=== PATIENT | male | born 1970 | race Caucasian/White ===

== ENCOUNTER 2017-05-04 11:14 | Emergency (ER) | payer OTHER, BC ==
[2017-05-04 11:18] VITALS: BP 140/92; PULSE 100; TEMP 97.8; BMI 31.0
--- NOTE | 2017-05-04 12:22 | PDOC ---
History of Present Illness - General Chief Complaint: Injury Stated Complaint: KNEE INJURY Time Seen by Provider: 05/04/17 12:06 Past History - Past Medical History Allergies/Adverse Reactions: Allergies Allergy/AdvReac Type Severity Reaction Status Date / Time No Known Allergies Allergy Verified 05/04/17 11:15 Home Medications: Ambulatory Orders NK [No Known Home Medication] 05/04/17 COPD: No - Suicide/Smoking/Psychosocial Hx Smoking History: Current every day smoker Have you smoked in the past 12 months: Yes Number of Cigarettes Smoked Daily: 5 Information on smoking cessation initiated: Yes 'Breaking Loose' booklet given: 05/04/17 Hx Alcohol Use: No Drug/Substance Use Hx: No Substance Use Type: None *Physical Exam - Vital Signs Last Vital Signs Temp Pulse Resp BP Pulse Ox 97.8 F 100 H 18 140/92 100 05/04/17 11:15 05/04/17 11:15 05/04/17 11:15 05/04/17 11:15 05/04/17 11:15 *DC/Admit/Observation/Transfer Diagnosis at time of Disposition: Right knee sprain Qualifiers: Encounter type: initial encounter Involved ligament of knee: unspecified ligament Qualified Code(s): S83.91XA - Sprain of unspecified site of right knee , initial encounter - Discharge Dispostion Disposition: HOME Condition at time of disposition: Stable Admit: No - Referrals Referrals: Yaw Chapin MD [Primary Care Provider] - Ryan Hwang MD [Staff Physician] - - Patient Instructions Printed Discharge Instructions: DI for Knee Sprain Additional Instructions: You injured her knee at work. Your x-ray shows no fractures. Please follow-up with Dr. Hwang for further evaluation. Please take your medications as prescribed for pain. When resting keep the leg elevated and apply heat to the area. Wear an Alan wrap to help with the swelling. Return to the emergency department if you have worsening pain, numbness and tingling in her foot, are unable to walk, or have any changes in her symptoms. - Post Discharge Activity Forms/Work/School Notes: Back to Work
== END 2017-05-04 13:05 | disposition home or self-care (01) ==
LOC: JERFT 11:14
DX: S83.8X1A Sprain of other specified parts of right knee, initial encounter (principal); W01.0XXA Fall on same level from slipping, tripping and stumbling without subsequent striking against object, initial encounter; Y93.89 Activity, other specified; Y92.89 Other specified places as the place of occurrence of the external cause; Y99.0 Civilian activity done for income or pay; F17.210 Nicotine dependence, cigarettes, uncomplicated
CPT/HCPCS: 73562-TC-RT-FY; 99281-25

== ENCOUNTER 2017-06-30 05:23 | Day surgery (SDC) | payer OTHER, BC ==
[2017-06-17 10:18] VITALS: BMI 31.0
--- NOTE | 2017-06-30 08:49 | HP ---
[facility] - Chief Complaint Chief Complaint: right knee pain - Past Medical History Allergies/Adverse Reactions: Allergies Allergy/AdvReac Type Severity Reaction Status Date / Time No Known Allergies Allergy Verified 05/04/17 11:15 - Current Medications Current Medications: Home Medications Medication Instructions Recorded Alprazolam [Xanax] 1 mg PO TID 06/17/17 Gabapentin 100 mg PO TID 06/17/17 Multivitamin [One Daily] 1 each PO DAILY 06/17/17 Oxycodone HCl 10 mg PO TID PRN 06/17/17 Ubidecarenone [Coq-10] 100 mg PO DAILY 06/17/17 Vitamin B Complex 1 each PO DAILY 06/17/17 [facility] Physical Exam - Physical Examination General Appearance: Well Nourished, Well Developed, Alert & Oriented x3 ENT: Clear Lung: Normal air movement Heart: Regular rate & rhythm Extremities: Other (right knee- + swelling, + ttp, decr rom, + mcmurrays, nvi MRI + mt) Neurological: Intact, Alert, Oriented Satellite Impression/Plan - Impression/Plan Impression: right knee internal derangement Operative Procedure: right knee arthroscopy Date to be Performed: 06/30/17
[2017-06-30] MEDS ORDERED: oxyCODONE HCL 5 MG TABLET PO PRN (10:29)
[2017-06-30] MEDS ORDERED: ONDANSETRON 4 MG/2 ML VIAL IVPUSH PRN (10:29)
[2017-06-30] MEDS ORDERED: PROMETHAZINE HCL 25 MG/1 ML VIAL IVPUSH PRN (10:29)
[2017-06-30] MEDS ORDERED: LACTATED RINGERS SOLUTION 1,000 ML IV SCH (10:30)
[2017-06-30] MEDS ORDERED: LIDOCAINE 1%/EPI 1:100000 (20 ML MULTI DOSE VIAL) ONE (10:31)
[2017-06-30] MEDS ORDERED: BUPIVACAINE HCL/PF 0.5% (5MG/ML) 10 ML VIAL ONE (10:31)
[2017-06-30] MEDS ORDERED: PROPOFOL 20 ML ONE (10:47)
[2017-06-30] MEDS ORDERED: MIDAZOLAM HCL 2 MG/2 ML SINGLE DOSE VIAL ONE (10:47)
[2017-06-30] MEDS ORDERED: GLYCOPYRROLATE 0.2 MG/1 ML VIAL ONE (10:48)
[2017-06-30] MEDS ORDERED: DEXAMETHASONE SOD PHOSPHATE 4 MG/1 ML VIAL ONE (11:02)
[2017-06-30] MEDS ORDERED: KETOROLAC TROMETHAMINE 30 MG/1 ML VIAL ONE (11:02)
--- NOTE | 2017-06-30 11:17 | OP ---
Operative Note - Note: Operative Date: 06/30/17 ([facility]) Pre-Operative Diagnosis: right knee internal derangement Operation: right knee arthroscopy with debridement chondroplasty Post-Operative Diagnosis: Same as Pre-op Surgeon: Alexx Madrigal Anesthesiologist/INTERNET MARKETING INTERN: Abel Ramon Anesthesia: General, Local Specimens Removed: shavings Estimated Blood Loss (mls): 5 Operative Report Dictated: Yes
[2017-06-30 12:26] VITALS: TEMP 98
[2017-06-30 13:40] VITALS: BP 118/74; PULSE 77
--- NOTE | 2017-06-30 13:59 | OP ---
DATE OF OPERATION: 06/30/2017 PREOPERATIVE DIAGNOSIS: Internal derangement, right knee. POSTOPERATIVE DIAGNOSIS: Internal derangement, right knee. PROCEDURE: Arthroscopy, right knee, with chondroplasty, medial femoral condyle. SURGICAL ATTENDING: Alexx Madrigal MD ANESTHESIA: General with LMA. CLOSURE: Nylon 4-0. COMPLICATIONS: None. CONDITION: To recovery room in stable condition. DESCRIPTION OF OPERATIVE PROCEDURE: Patient taken to the operating room on June 30, 2017. General anesthesia with LMA was administered by the anesthesiologist. Right lower extremity was prepped and draped in the usual sterile fashion. Medial and lateral infrapatellar portal sites were infiltrated with 1% Xylocaine with epinephrine. Superolateral portal was made with a 15 blade with blunt trocar. The scope was placed in the lateral infrapatellar and up into the suprapatellar pouch. The knee was inflated with a cocktail of 10 mL of 1% Xylocaine, 10 mL of 0.5% Marcaine, 20 mL of arthroscopic normal saline. The medial and lateral infrapatellar portals were then made with a 15 blade followed by a blunt trocar. The scope was placed up into the suprapatellar pouch. Pouch was visualized to be clean. The medial and lateral gutters were visualized to be clean. The undersurface of the patella and trochlea were visualized to be intact. With valgus stress on the knee the medial compartment was entered. The medial meniscus was visualized, probed, found to be intact. The medial femoral condyle had some grade 2-3 changes. This was debrided using the shaver down to stable articular cartilage. The medial tibial plateau was found to be intact. At 90 degrees the ACL was visualized, probed, found to be intact. In the figure 4 position the lateral compartment was entered The lateral meniscus was visualized, probed, found to be intact. The lateral femoral condyle was run and found to be intact as was the lateral tibial plateau. The knee was irrigated with copious amounts of irrigation. Portals closed with 4-0 nylon. Prior to closure 20 mL of 0.5% Marcaine was then infused through the cannula for postoperative analgesia. A sterile pressure dressing was placed over the knee. Patient awakened from anesthesia and transferred to recovery in stable condition. No complication. ESTIMATED BLOOD LOSS: Negligible. Nolberto [id number]
--- NOTE | 2017-07-02 15:43 | PATH ---
Surgical Pathology Report Patient Name: ALLYSON COBOS [facility]. Rec. #: [id number] /Age/Gender: 1970 (Age: 46) / M Account: [id number] Location: [facility] SURGICAL Taken: 06/30/2017 Received: 06/30/2017 Reported: 07/02/2017 Physicians: Alexx Madrigal M.D. Specimen(s) Received RIGHT KNEE SHAVINGS Clinical History Right knee tear Final Diagnosis KNEE SHAVINGS, RIGHT, ARTHROSCOPY: FRAGMENTS OF DENSE FIBROCONNECTIVE TISSUE, ADIPOSE TISSUE, AND SYNOVIUM. Electronically Signed Jade Winston M.D. Gross Description Received in formalin, labeled "right knee shavings," is a 3.0 x 3.0 x 0.3 cm. aggregate of milian-yellow soft tissue fragments. A fundraising sale representative portion is submitted in one cassette. /06/30/2017 saudi06/30/2017
== END 2017-06-30 13:40 | disposition home or self-care (01) ==
LOC: JASU-SURG 05:23
PROVIDERS: ATTEND Orthopaedic Surgery
PROC: 0SBC4ZZ Excision of Right Knee Joint, Percutaneous Endoscopic Approach (ICD-10-PCS; principal; 2017-06-30 10:15)
DX: M23.91 Unspecified internal derangement of right knee (principal)
CPT/HCPCS: 88304-TC; 94760

== ENCOUNTER 2018-09-05 10:52 | Emergency (ER) | payer OTHER, BC ==
[2018-09-05 11:11] VITALS: BP 130/85; PULSE 78; TEMP 98; BMI 31.7
[2018-09-05] MEDS ORDERED: ACETAMINOPHEN 500 MG TABLET (FP) PO ONE (11:35)
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
== END 2018-09-05 13:40 | disposition home or self-care (01) ==
LOC: JER 10:52
PROC: 0HQDXZZ Repair Right Lower Arm Skin, External Approach (ICD-10-PCS; principal; 2018-09-05)
DX: S51.811A Laceration without foreign body of right forearm, initial encounter (principal); M25.561 Pain in right knee; V03.10XA Pedestrian on foot injured in collision with car, pick-up truck or van in traffic accident, initial encounter; Y92.414 Local residential or business street as the place of occurrence of the external cause; Y93.89 Activity, other specified; Y99.0 Civilian activity done for income or pay
CPT/HCPCS: 73090-TC-RT-FY; 73562-TC-RT-FY; 99281-25

== ENCOUNTER 2020-06-27 12:08 | Emergency (ER) | payer OTHER, BC ==
[2020-06-27 12:33] VITALS: BP 132/73; PULSE 77; BMI 31.7
[2020-06-27] MEDS ORDERED: KETOROLAC TROMETHAMINE 60 MG/2 ML VIAL IM ONE (12:58)
[2020-06-27] MEDS ORDERED: KETOROLAC TROMETHAMINE 30 MG/1 ML VIAL ONE (13:13)
== END 2020-06-27 13:53 | disposition home or self-care (01) ==
LOC: JER 12:08
PROC: 3E0233Z Introduction of Anti-inflammatory into Muscle, Percutaneous Approach (ICD-10-PCS; principal; 2020-06-27)
DX: M25.562 Pain in left knee (principal)
CPT/HCPCS: 73562-TC-LT-FY; 99284-25

== ENCOUNTER 2023-02-03 08:13 | Emergency (ER) | payer OTHER, BC ==
[2023-02-03 08:29] VITALS: BP 162/81; PULSE 68; RESP 18; TEMP 97.9; BMI 37.6
[2023-02-03] MEDS ORDERED: KETOROLAC TROMETHAMINE 30 MG/1 ML VIAL IM ONE (09:53)
[2023-02-03] MEDS ORDERED: KETOROLAC TROMETHAMINE 30 MG/1 ML VIAL ONE (10:00)
== END 2023-02-03 10:45 | disposition home or self-care (01) ==
LOC: JER 08:13 → JERFT 08:13
PROC: 3E0233Z Introduction of Anti-inflammatory into Muscle, Percutaneous Approach (ICD-10-PCS; principal; 2023-02-03)
DX: S86.911A Strain of unspecified muscle(s) and tendon(s) at lower leg level, right leg, initial encounter (principal); M25.561 Pain in right knee; R22.41 Localized swelling, mass and lump, right lower limb; W18.42XA Slipping, tripping and stumbling without falling due to stepping into hole or opening, initial encounter; X50.0XXA Overexertion from strenuous movement or load, initial encounter; Y93.01 Activity, walking, marching and hiking
CPT/HCPCS: 73562-TC-RT-FY; 99284-25

== ENCOUNTER 2023-06-24 17:01 | Emergency (ER) | payer BC ==
[2023-06-24 17:10] VITALS: BP 131/72; PULSE 108; RESP 19; TEMP 97.9; BMI 37.6
[2023-06-24] MEDS ORDERED: ONDANSETRON 4 MG/2 ML VIAL ONE ×2 (18:00→20:57)
[2023-06-24] MEDS: SODIUM CHLORIDE 1,000 ML IV STA (18:12)
[2023-06-24] MEDS: ONDANSETRON 4 MG/2 ML VIAL IVPUSH ONE ×2 (18:12→21:06)
[2023-06-24 18:15] LABS: BASO % 0.4 % (0-2.0); EOS % 0.8 % (0-4.5); HEMATOCRIT 48.2 % (35.4-49); HEMOGLOBIN 16.5 GM/dL (11.7-16.9); LYMPH % 19.6 % (8-40); MCH 32.1 pg (25.7-33.7); MCHC 34.3 g/dl (32.0-35.9); MEAN CELL VOLUME 93.6 fl (80-96); MEAN PLT VOLUME 8.9 fl (7.5-11.1); MONO % 5.8 % (3.8-10.2); NEUT % 73.4 % (42.8-82.8); PLATELET COUNT 124 10^3/uL (134-434); RBC 5.15 M/mm3 (4.00-5.60); RDW 13.4 % (11.9-15.9); WHITE BLOOD COUNT 8.8 K/mm3 (4.0-10.0)
[2023-06-24 18:33] LABS: POTASSIUM 3.7 mmol/L (3.5-5.1)
[2023-06-24 18:35] LABS: ALBUMIN 3.3 g/dl (3.4-5.0); BLOOD UREA NITROGEN 15.8 mg/dL (7-18); CALCIUM 8.3 mg/dL (8.5-10.1)
[2023-06-24 18:40] LABS: BILIRUBIN,TOTAL 0.9 mg/dL (0.2-1); TOT PROT 6.6 g/dl (6.4-8.2)
[2023-06-24 18:45] LABS: EPI CELLS 17 /uL (0-25.1); HYALINE CASTS 5 /uL (0-3.1); URINE APPEARANCE CLEAR; URINE BACTERIA 13 /uL (0-1359); URINE BILIRUBIN 1+ (NEGATIVE); URINE COLOR DK YELLOW; URINE GLUCOSE (UA) NEGATIVE (NEGATIVE); URINE KETONE TRACE (NEGATIVE); URINE LEUK ESTERASE TRACE (NEGATIVE); URINE NITRITE NEGATIVE (NEGATIVE); URINE PROTEIN 1+ (NEGATIVE); URINE WBC 21 /uL (0-25.8)
[2023-06-24 18:47] LABS: URINE RBC 43.4 /uL (0-23.9)
[2023-06-24] MEDS ORDERED: ACETAMINOPHEN 500 MG TABLET (FP) ONE (20:57)
[2023-06-24] MEDS: ACETAMINOPHEN 500 MG TABLET (FP) PO ONE (21:05)
== END 2023-06-24 21:07 | disposition home or self-care (01) ==
LOC: JER 17:01
PROC: 3E030GC Introduction of Other Therapeutic Substance into Peripheral Vein, Open Approach (ICD-10-PCS; principal; 2023-06-24)
PROC: 3E030GC Introduction of Other Therapeutic Substance into Peripheral Vein, Open Approach (ICD-10-PCS; 2023-06-24)
PROC: 3E0337Z Introduction of Electrolytic and Water Balance Substance into Peripheral Vein, Percutaneous Approach (ICD-10-PCS; 2023-06-24)
DX: K52.9 Noninfective gastroenteritis and colitis, unspecified (principal); R10.84 Generalized abdominal pain; R11.0 Nausea; Z20.822 Contact with and (suspected) exposure to COVID-19
CPT/HCPCS: 0241U-QW; 36415; 71046-TC-FY; 74177-TC; 80053; 81003; 83605; 83690; 84478; 84484; 85025; 87086; 93005; 93010; 99285-25; Q9967

== ENCOUNTER 2023-10-11 04:50 | Day surgery (SDC) | payer BC ==
[2023-10-08 12:50] VITALS: BMI 38.4
[2023-10-11 12:10] VITALS: TEMP 97.9
[2023-10-11 13:48] VITALS: BP 112/80; PULSE 75; RESP 18
== END 2023-10-11 13:00 | disposition home or self-care (01) ==
LOC: JASU-ENDO 04:50
PROVIDERS: ATTEND Student in an Organized Health Care Education/Training Program
PROC: 0DB78ZX Excision of Stomach, Pylorus, Via Natural or Artificial Opening Endoscopic, Diagnostic (ICD-10-PCS; 2023-10-11)
PROC: 0DB68ZX Excision of Stomach, Via Natural or Artificial Opening Endoscopic, Diagnostic (ICD-10-PCS; 2023-10-11)
PROC: 0DB98ZX Excision of Duodenum, Via Natural or Artificial Opening Endoscopic, Diagnostic (ICD-10-PCS; principal; 2023-10-11 12:00)
DX: K29.50 Unspecified chronic gastritis without bleeding (principal); K20.90 Esophagitis, unspecified without bleeding
CPT/HCPCS: 88305-TC; 88342-TC